=== PATIENT | female | born 1940 | race Caucasian/White ===

== ENCOUNTER 2020-11-22 12:54 | Outpatient (CLI) | payer MEDICARE, SELFPAY | END 2020-11-22 12:55 | disposition home or self-care (01) | PROVIDERS: PCP Family Medicine; Visit Provider Otolaryngology | DX: H91.93 Unspecified hearing loss, bilateral (principal); H93.19 Tinnitus, unspecified ear | CPT/HCPCS: 92557; 92567 ==

== ENCOUNTER 2022-04-01 13:05 | Outpatient (CLI) | payer MEDICARE, SELFPAY ==
[2022-04-01 19:37] LABS: Vitamin D 25 Hydroxy 42.9 ng/mL
[2022-04-01 19:51] LABS: Basophils Absolute Auto 0.1 K/mm3 (0.0-0.1); Basophils Percent Auto 0.7 % (0.2-1.2); Eosinophils Absolute Auto 0.1 K/mm3 (0-0.3); Hematocrit 44.3 % (37.0-47.0); Hemoglobin 14.1 g/dL (12.0-15.0); Immature Granulocyte Absolute 0.02 K/mm3 (0.00-0.031); Immature Granulocyte Percent A 0.3 % (0-0.5); Lymphocytes Absolute Auto 2.21 K/mm3 (0.9-3.2); Mean Corpuscular HGB Conc 31.8 g/dl (32-36); Mean Corpuscular Hemoglobin 32.4 pg (26-34); Mean Corpuscular Volume 101.8 fl (80-100); Monocytes Absolute Auto 0.6 K/mm3 (0.1-0.6); Monocytes Percent Auto 8.8 % (2.6-8.5); Neutrophils Absolute Auto 3.9 K/mm3 (1.3-6.7); Neutrophils Percent Auto 56.2 % (45.5-73.1); Platelet Count Result 244 k/mm3 (150-375); Red Blood Count 4.35 M/mm3 (4.2-5.4); Red Cell Distribution Width 13.1 % (11.5-14.5); Thyroid Stimulating Hormone Reflex 0.471 uIU/mL (0.465-4.68); White Blood Count 6.9 K/mm3 (4.5-10.0)
[2022-04-02 06:23] LABS: Alanine Aminotransferase 22 U/L (6-35); Albumin Level 4.1 g/dL (3.5-5.1); Alkaline Phosphatase 94 U/L (38-126); Anion Gap 12 mmol/L (8-16); Aspartate Amino Transferase 29 U/L (14-36); Bilirubin,Total 0.5 mg/dL (0.2-1.3); Blood Urea Nitrogen 16 mg/dL (7-17); Calcium 9.3 mg/dL (8.4-10.2); Carbon Dioxide 25 mmol/L (22-30); Chloride 108 mmol/L (98-107); Cholesterol 204 mg/dL (0-200); Estimated Glomerular Filt Rate 60; Glucose 92 mg/dL (65-110); HDL Direct 72 mg/dL; Potassium 4.8 mmol/L (3.4-5.0); Sodium 145 mmol/L (137-145); Triglycerides 108 mg/dL (<150)
[2022-04-02 06:34] LABS: LDL Cholesterol Direct 85 mg/dL
== END 2022-04-01 13:06 | disposition home or self-care (01) ==
LOC: ANHGOSHLAB 13:08
PROVIDERS: PCP Family Medicine; Visit Provider Family Medicine
DX: E03.9 Hypothyroidism, unspecified (principal); E78.5 Hyperlipidemia, unspecified; R49.9 Unspecified voice and resonance disorder; E53.8 Deficiency of other specified B group vitamins; E55.9 Vitamin D deficiency, unspecified; I10 Essential (primary) hypertension
CPT/HCPCS: 36415; 80053; 80061; 82306; 82607; 84443; 85025

== ENCOUNTER 2023-04-01 11:33 | Outpatient (CLI) | payer MEDICARE, SELFPAY ==
[2023-04-01 18:24] LABS: Alanine Aminotransferase 22 U/L (6-35); Albumin Level 4.2 g/dL (3.5-5.1); Alkaline Phosphatase 88 U/L (38-126); Anion Gap 7 mmol/L (8-16); Aspartate Amino Transferase 51 U/L (14-36); Bilirubin,Total 0.8 mg/dL (0.2-1.3); Blood Urea Nitrogen 16 mg/dL (7-17); Calcium 9.5 mg/dL (8.4-10.2); Carbon Dioxide 32 mmol/L (22-30); Chloride 101 mmol/L (98-107); Cholesterol 207 mg/dL (0-200); Estimated Glomerular Filt Rate > 60; Glucose 87 mg/dL (65-110); HDL Direct 74 mg/dL; Potassium 4.2 mmol/L (3.4-5.0); Sodium 140 mmol/L (137-145); Triglycerides 98 mg/dL (<150)
[2023-04-01 18:30] LABS: Basophils Percent Auto 0.5 % (0.2-1.2); Eosinophils Absolute Auto 0.2 K/mm3 (0-0.3); Eosinophils Percent Auto 2.2 % (0-4.4); Hematocrit 45.6 % (37.0-47.0); Hemoglobin 14.2 g/dL (12.0-15.0); Immature Granulocyte Absolute 0.02 K/mm3 (0.00-0.031); Immature Granulocyte Percent A 0.3 % (0-0.5); Immature Platelet Fraction Pct 10.9 % (0.9-11.2); Lymphocytes Absolute Auto 1.77 K/mm3 (0.9-3.2); Lymphocytes Percent Auto 23.4 % (18.3-44.2); Mean Corpuscular HGB Conc 31.1 g/dl (32-36); Mean Corpuscular Hemoglobin 32.2 pg (26-34); Mean Corpuscular Volume 103.4 fl (80-100); Mean Platelet Volume 13.2 fl (7.4-10.4); Monocytes Absolute Auto 0.7 K/mm3 (0.1-0.6); Monocytes Percent Auto 9.1 % (2.6-8.5); Neutrophils Absolute Auto 4.9 K/mm3 (1.3-6.7); Neutrophils Percent Auto 64.5 % (45.5-73.1); Platelet Count Result 248 k/mm3 (150-375); Red Blood Count 4.41 M/mm3 (4.2-5.4); Red Cell Distribution Width 12.8 % (11.5-14.5); White Blood Count 7.6 K/mm3 (4.5-10.0)
[2023-04-01 18:35] LABS: LDL Cholesterol Direct 89 mg/dL
[2023-04-01 19:20] LABS: Vitamin D 25 Hydroxy 43.4 ng/mL
[2023-04-01 19:33] LABS: Thyroid Stimulating Hormone Reflex 0.614 uIU/mL (0.465-4.68)
== END 2023-04-01 11:34 | disposition home or self-care (01) ==
PROVIDERS: PCP Family Medicine; Visit Provider Family Medicine
DX: E78.5 Hyperlipidemia, unspecified (principal); E03.9 Hypothyroidism, unspecified; E53.8 Deficiency of other specified B group vitamins; E55.9 Vitamin D deficiency, unspecified; Z78.0 Asymptomatic menopausal state
CPT/HCPCS: 36415; 80053; 80061; 82306; 82607; 84443; 85025; 85055

== ENCOUNTER 2023-07-07 14:52 | Outpatient (CLI) | payer MEDICARE, SELFPAY ==
[2023-07-07 18:35] LABS: Basophils Absolute Auto 0.1 K/mm3 (0.0-0.1); Basophils Percent Auto 0.8 % (0.2-1.2); Eosinophils Absolute Auto 0.3 K/mm3 (0-0.3); Eosinophils Percent Auto 4.1 % (0-4.4); Hematocrit 46.6 % (37.0-47.0); Hemoglobin 14.2 g/dL (12.0-15.0); Immature Granulocyte Absolute 0.01 K/mm3 (0.00-0.031); Immature Granulocyte Percent A 0.2 % (0-0.5); Lymphocytes Absolute Auto 1.92 K/mm3 (0.9-3.2); Lymphocytes Percent Auto 31.3 % (18.3-44.2); Mean Corpuscular HGB Conc 30.5 g/dl (32-36); Mean Corpuscular Hemoglobin 30.7 pg (26-34); Mean Corpuscular Volume 100.6 fl (80-100); Mean Platelet Volume 11.9 fl (7.4-10.4); Monocytes Absolute Auto 0.7 K/mm3 (0.1-0.6); Monocytes Percent Auto 11.6 % (2.6-8.5); Neutrophils Absolute Auto 3.2 K/mm3 (1.3-6.7); Platelet Count Result 364 k/mm3 (150-375); Red Blood Count 4.63 M/mm3 (4.2-5.4); Red Cell Distribution Width 12.3 % (11.5-14.5); White Blood Count 6.1 K/mm3 (4.5-10.0)
[2023-07-07 19:28] LABS: Alanine Aminotransferase 28 U/L (6-35); Albumin Level 4.1 g/dL (3.5-5.1); Alkaline Phosphatase 113 U/L (38-126); Anion Gap 4 mmol/L (8-16); Aspartate Amino Transferase 44 U/L (14-36); Bilirubin,Total 0.7 mg/dL (0.2-1.3); Blood Urea Nitrogen 16 mg/dL (7-17); Calcium 10.4 mg/dL (8.4-10.2); Carbon Dioxide 33 mmol/L (22-30); Chloride 105 mmol/L (98-107); Estimated Glomerular Filt Rate > 60; Glucose 96 mg/dL (65-110); Potassium 5.3 mmol/L (3.4-5.0); Sodium 142 mmol/L (137-145)
[2023-07-07 19:34] LABS: Thyroid Stimulating Hormone Reflex 0.641 uIU/mL (0.465-4.68)
== END 2023-07-07 14:53 | disposition home or self-care (01) ==
LOC: ANHGOSHLAB 14:54
PROVIDERS: PCP Family Medicine; Visit Provider Family Medicine
DX: E03.9 Hypothyroidism, unspecified (principal); R53.83 Other fatigue; I10 Essential (primary) hypertension
CPT/HCPCS: 36415; 80053; 84443; 85025

== ENCOUNTER 2023-08-01 09:40 | Outpatient (CLI) | payer MEDICARE, SELFPAY ==
--- NOTE | ~2023-08-01 | NM_ITS ---
EXAMINATION: NM yolanda stress w perfusion DATE: 08/01/2023 12:34 INDICATION: Other forms of dyspnea. TECHNIQUE: Rest images were obtained following intravenous administration of 10 mCi Tc99m tetrofosmin (Myoview). The patient was infused intravenously with Lexiscan (regadenoson). Then, 30 mCi Tc99m tet rofosmin (Myoview) was administered intravenously, and stress images were obtained. Data was reconstr ucted into short axis and horizontal and vertical long axis SPECT images. Gated SPECT images were als o obtained. COMPARISON: None. FINDINGS: There is no definite reversible or fixed perfusion abnormality to suggest ischemia or infar ction. There is no segmental wall motion abnormality. Left ventricular ejection fraction measures > 70%. IMPRESSION: 1. No definite ischemia or infarct. 2. Normal left ventricular ejection fraction measuring >70%. Reviewed, dictated and finalized at location A.
--- NOTE | 2023-08-01 09:47 | EST_ITS ---
Patient Info Name: Shaina Giraldo Age: 83 years : 1940 Gender: Female Ht: 63 in Wt: 178 lbs BSA: 1.92 m2 HR: 60 bpm BP: 147 / 88 mmHg Heart Rhythm: Sinus Rhythm Exam Date: 08/01/2023 11:40 AM Exam Location: Echo Lab Patient Status: Outpatient Admit Date: 08/01/2023 Staff Ordering Physician: Gurinder Pratt MD Attending Provider: Gurinder Pratt MD Exercise Technologist: Vale Fisher CT Exercise Physician: Florentino Pickett DO Exam Type: CA stress yolanda w NM Study Info Indications R06.09 - Other forms of dyspnea A regadenoson stress test was performed. Summary 1. 1. Negative lexiscan stress test for ischemic ST changes by ECG criteria. 2. 2. Baseline hypertension. 3. 3. Nuclear scan to follow and will be reported separately. Please correlate with it. 4. 4. Patient informed of the above results. Protocol: Lexiscan Rest HR: 62 bpm Peak HR: 106 bpm Rest Sys BP: 147 mmHg Peak Sys BP: 172 mmHg Max Pred HR: 137 bpm % Max Pred HR: 77 % Target HR: 116 bpm Max RPP: 18,232 bpm*mmHg Termination Reason: Completed protocol Cardiac Symptoms: Shortness of breath Rest Herzog BP: 88 mmHg Peak Herzog BP: 81 mmHg Total Dose: 0.4 mg Resting ECG Sinus rhythm. Stress ECG No ST changes. Arrhythmias None. Report Signatures
== END 2023-08-01 09:41 | disposition home or self-care (01) ==
LOC: ANHCARD 09:42
PROVIDERS: PCP Family Medicine; Visit Provider Family Medicine
DX: R07.9 Chest pain, unspecified (principal); R06.09 Other forms of dyspnea
CPT/HCPCS: 78452; 93017; A9502; J2785

== ENCOUNTER 2023-12-22 15:09 | Outpatient (CLI) | payer MEDICARE, SELFPAY ==
[2023-12-22 18:50] LABS: Alanine Aminotransferase 18 U/L (6-35); Albumin Level 4.1 g/dL (3.5-5.1); Alkaline Phosphatase 83 U/L (38-126); Anion Gap 6 mmol/L (4-12); Aspartate Amino Transferase 38 U/L (14-36); Bilirubin,Total 0.6 mg/dL (0.2-1.3); Blood Urea Nitrogen 19 mg/dL (7-17); Calcium 9.6 mg/dL (8.4-10.2); Carbon Dioxide 33 mmol/L (22-30); Chloride 102 mmol/L (98-107); Estimated Glomerular Filt Rate > 60; Glucose 83 mg/dL (65-110); Potassium 4.7 mmol/L (3.4-5.0); Sodium 141 mmol/L (137-145)
[2023-12-23 09:24] LABS: Thyroid Stimulating Hormone Reflex 0.101 uIU/mL (0.465-4.68)
== END 2023-12-22 15:10 | disposition home or self-care (01) ==
LOC: ANHGOSHLAB 15:10
PROVIDERS: PCP Family Medicine; Visit Provider Family Medicine
DX: E78.5 Hyperlipidemia, unspecified (principal); E03.9 Hypothyroidism, unspecified
CPT/HCPCS: 36415; 80053; 84439; 84443

== ENCOUNTER 2023-12-26 09:52 | Outpatient (CLI) | payer MEDICARE, SELFPAY ==
[2023-12-26 15:13] LABS: Thyroid Stimulating Hormone 0.293 uIU/mL (0.465-4.680)
[2023-12-26 19:48] LABS: Total Triiodothyronine (T3) 1.29 NG/ML (0.97-1.69)
== END 2023-12-26 09:53 | disposition home or self-care (01) ==
PROVIDERS: PCP Family Medicine; Visit Provider Family Medicine
DX: E03.9 Hypothyroidism, unspecified (principal)
CPT/HCPCS: 36415; 84439; 84443; 84480

== ENCOUNTER 2024-01-14 07:00 | Outpatient (NON) | payer MEDICARE, SELFPAY | END 2024-01-14 07:01 | disposition home or self-care (01) | LOC: ANHLAB 01-15 07:55 | PROVIDERS: PCP Family Medicine; Visit Provider Internal Medicine Gastroenterology | DX: D12.2 Benign neoplasm of ascending colon (principal) | CPT/HCPCS: 88305 ==

== ENCOUNTER 2024-01-14 08:07 | Day surgery (SDC) | payer MEDICARE, SELFPAY ==
[2024-01-05 09:45] VITALS: BMI 30.2
[2024-01-05 10:53] VITALS: BMI 30.4
--- NOTE | 2024-01-13 10:10 | P.PNAN_ITS ---
Anes - Initial Pre Proc Eval Procedure: Operation Date: 01/14/24 12:00 Proposed Procedures p Diagnostic Colonoscopy - Otilio Casey MD Date/Time: 01/13/24 10:10 Surgeon: Otilio Casey MD Pre Op Diagnosis: Gastrointestinal hemorrhage,unspec.Noninfective Patient Data Age: 83 Gender: F Height: 1.6 m Weight: 78 kg Allergies Allergy/AdvReac Type Severity Reaction Status Date / Time moxifloxacin [From Avelox] Allergy Unknown Hallucinati Verified 01/14/24 09:07 ng Home Medications Medication Instructions Recorded Confirmed Type levothyroxine 50 mcg tablet 50 mcg PO DAILY #60 tabs 12/29/23 01/14/24 Rx Patient hx anesthesia problems: none Family hx anesthesia problems: none Results Review: All pre-operative results and documents have been reviewed as part of the pre- operative evaluation. 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 Status post right knee replacement 05/2003 Family History Family History Mother Family history of malignant neoplasm of esophagus Other Acute myocardial infarction Social History Social History Smoking status: Never smoker Alcohol intake: current Substance use: never Substance use type: does not use Do You Feel Safe in your Home?: Yes Lack of Transportation: No Lack of Food: Never True Current Housing: I Have Housing Concerned About Future Housing: No Difficulty Paying Gas/Electric Bills: No Difficulty Paying for Meds: No Currently Unemployed: No Education: High School Diploma/GED Difficulty w/ Childcare or Family Care: No Living arrangements: alone Occupation/Education: retired Gender identity (if verbalized by the patient): Female Spiritual care concerns: No Agree to blood products: Yes Anes - Eval Final PreProcedure Day of Procedure 01/13/24 10:10 Patient weight: obese Heart: regular rate and rhythm Lungs: clear to auscultation Airway: Mallampati scale class II Neurological: alert and oriented Last oral intake: >/= 8 hours ASA classification: II Emergent: no Anesthetic plan: proceed Anesthesia type and monitoring: general GIVS and standard monitoring Results Review: All pre-operative results and documents have been reviewed as part of the pre- operative evaluation. Informed Consent: The patient's anesthetic plan and its attendant risks and benefits were discussed with the patient/family/POA. Questions were solicited and answers provided to the satisfaction of the patient/family/POA.
[2024-01-14 09:15] VITALS: BP 119/61; PULSE 65; RESP 18; TEMP 36.5; O2SAT 99
[2024-01-14] MEDS: LACTATED RINGERS 1,000 ML 150 ML IV CONT (09:30)
--- NOTE | 2024-01-14 09:55 | PM.HPGS ---
History of Present Illness History of Present Illness Consent: Risks, benefits, and alternatives have been discussed and questions answered. Patient agrees to proceed with procedure. Chief complaint: Gastrointestinal hemorrhage,unspec.Noninfective Narrative: Shaina Giraldo is a 83 year old female presents for colonoscopy. Patient gives a history of being admitted to [facility] in April of 2023. At that time she had bright red blood per rectum. Hospital. CT scan suggested partial colitis. Was presumed she had ischemic colon is but infectious colitis could not be excluded. With antibiotics. Patient reports abdominal pain and bleeding resolved after 4 days. Patient has been unable to have colonoscopy which was recommended at that time until this time. She now presents to our office for colonoscopy. She states her bowel habits are normal. She has had no additional bleeding. She denies abdominal pain. 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 Status post right knee replacement 05/2003 Family History Family History Mother Family history of malignant neoplasm of esophagus Other Acute myocardial infarction Social History Social History Smoking status: Never smoker Alcohol intake: current Substance use: never Substance use type: does not use Do You Feel Safe in your Home?: Yes Lack of Transportation: No Lack of Food: Never True Current Housing: I Have Housing Concerned About Future Housing: No Difficulty Paying Gas/Electric Bills: No Difficulty Paying for Meds: No Currently Unemployed: No Education: High School Diploma/GED Difficulty w/ Childcare or Family Care: No Living arrangements: alone Occupation/Education: retired Gender identity (if verbalized by the patient): Female Spiritual care concerns: No Agree to blood products: Yes Meds Home Medications and Allergies Home Medications Medication Instructions Recorded Confirmed Type levothyroxine 50 mcg tablet 50 mcg PO DAILY #60 tabs 08/12/24 08/28/24 Rx Allergies Allergy/AdvReac Type Severity Reaction Status Date / Time moxifloxacin [From Avelox] Allergy Unknown Hallucinati Verified 01/14/24 09:07 ng Vital Signs Vital Signs - 24 hr 01/14/24 09:15 Temperature 97.7 F Pulse Rate 65 Respiratory Rate 18 Blood Pressure 119/61 Pulse Oximetry 99 Oxygen Delivery Room Air Exam Narrative: Physical exam reveals patient to be alert. Vital signs stable. HEENT exam is unremarkable. Patient is anicteric. Lungs are clear to auscultation and to percussion heart is without murmur or extra sounds. Abdomen your present soft nontender with no organomegaly. Digital external rectal exam is normal. Assessment and Plan Assessment and plan (1) Lower GI bleed: Code(s): K92.2 - Gastrointestinal hemorrhage, unspecified Status: Acute Assessment and Plan: Patient presents today for colonoscopy. She has a history of lower GI bleeding in April of 2023 that was limited to 4 days. Further recommendations may be given after endoscopy.
[2024-01-14 11:27] VITALS: BP 91/51; PULSE 67; RESP 14; O2SAT 95
--- NOTE | 2024-01-14 11:35 | WPDANESPN ---
Anes - Prog Note Post-Op Date/Time: 01/14/24 11:35 Cardiovascular status: normal Respiratory status: normal Airway patency: baseline Mental status: baseline Post-Op hydration status: normal Vital Signs: Last Vital Signs Temp 36.5 C 01/14/24 09:15 Pulse 67 01/14/24 11:27 Resp 14 01/14/24 11:27 BP 91/51 L 01/14/24 11:27 Pulse Ox 95 01/14/24 11:27 O2 Del Method Room Air 01/14/24 11:27 Pain Score (VAS): 0 I/O: Intake & Output 01/13/24 01/14/24 01/14/24 23:59 07:59 15:59 Intake Total 400 Balance 400 Post-procedural complaints: none Patient Feedback: Patient satisfied with anesthetic care. Other Findings: Patient vital signs back to baseline. Patient denies nausea and vomiting. Patient's pain under control. Patient OK for discharge.
[2024-01-14 11:37] VITALS: BP 96/67; PULSE 60; RESP 16; O2SAT 100
[2024-01-14 11:47] VITALS: BP 128/70; PULSE 61; RESP 16; O2SAT 100
== END 2024-01-14 12:07 | disposition home or self-care (01) ==
PROVIDERS: PCP Family Medicine; Visit Provider Internal Medicine Gastroenterology
PROC: 0DJD8ZZ Inspection of Lower Intestinal Tract, Via Natural or Artificial Opening Endoscopic (ICD-10-PCS; CPT 45378; principal; 2024-01-14 10:30)
DX: K92.2 Gastrointestinal hemorrhage, unspecified (principal); D12.2 Benign neoplasm of ascending colon; D12.4 Benign neoplasm of descending colon; K64.8 Other hemorrhoids
CPT/HCPCS: 45385

== ENCOUNTER 2024-02-11 09:30 | Outpatient (CLI) | payer MEDICARE, SELFPAY ==
[2024-02-11 16:45] LABS: Free T4 Free Thyroxine Reflex 0.98 ng/dL (0.78-2.19)
[2024-02-11 18:13] LABS: Total Triiodothyronine (T3) 1.16 NG/ML (0.97-1.69)
== END 2024-02-11 09:31 | disposition home or self-care (01) ==
LOC: ANHGOSHLAB 09:32
PROVIDERS: PCP Family Medicine; Visit Provider Family Medicine
DX: R49.0 Dysphonia (principal)
CPT/HCPCS: 36415; 84439; 84443; 84480

== ENCOUNTER 2024-04-06 09:41 | Outpatient (CLI) | payer MEDICARE, SELFPAY ==
[2024-04-06 13:44] LABS: Alanine Aminotransferase 19 U/L (6-35); Albumin Level 3.9 g/dL (3.5-5.1); Alkaline Phosphatase 87 U/L (38-126); Anion Gap 5 mmol/L (4-12); Aspartate Amino Transferase 45 U/L (14-36); Bilirubin,Total 0.8 mg/dL (0.2-1.3); Blood Urea Nitrogen 18 mg/dL (7-17); Calcium 9.2 mg/dL (8.4-10.2); Carbon Dioxide 32 mmol/L (22-30); Chloride 102 mmol/L (98-107); Cholesterol 213 mg/dL (0-200); Estimated Glomerular Filt Rate 47; Glucose 77 mg/dL (65-110); HDL Direct 82 mg/dL; Potassium 4.9 mmol/L (3.4-5.0); Sodium 139 mmol/L (137-145); Triglycerides 64 mg/dL (<150)
[2024-04-06 13:46] LABS: Basophils Absolute Auto 0.1 K/mm3 (0.0-0.1); Basophils Percent Auto 0.9 % (0.2-1.2); Eosinophils Absolute Auto 0.2 K/mm3 (0-0.3); Eosinophils Percent Auto 2.8 % (0-4.4); Hematocrit 43.9 % (37.0-47.0); Immature Granulocyte Absolute 0.01 K/mm3 (0.00-0.031); Immature Granulocyte Percent A 0.2 % (0-0.5); Lymphocytes Absolute Auto 1.73 K/mm3 (0.9-3.2); Lymphocytes Percent Auto 31.7 % (18.3-44.2); Mean Corpuscular HGB Conc 31.9 g/dl (32-36); Mean Corpuscular Hemoglobin 32.8 pg (26-34); Mean Corpuscular Volume 102.8 fl (80-100); Mean Platelet Volume 12.7 fl (7.4-10.4); Monocytes Absolute Auto 0.6 K/mm3 (0.1-0.6); Monocytes Percent Auto 10.5 % (2.6-8.5); Neutrophils Absolute Auto 2.9 K/mm3 (1.3-6.7); Neutrophils Percent Auto 53.9 % (45.5-73.1); Platelet Count Result 228 k/mm3 (150-375); Red Blood Count 4.27 M/mm3 (4.2-5.4); Red Cell Distribution Width 13.2 % (11.5-14.5); White Blood Count 5.5 K/mm3 (4.5-10.0)
[2024-04-06 14:08] LABS: LDL Cholesterol Direct 92 mg/dL
[2024-04-06 14:18] LABS: Vitamin D 25 Hydroxy 41.5 ng/mL
[2024-04-06 15:43] LABS: Hemoglobin A1C 5.4 % (<5.7)
[2024-04-07 04:50] LABS: Free T4 Free Thyroxine Reflex 0.87 ng/dL (0.78-2.19)
[2024-04-07 05:59] LABS: Total Triiodothyronine (T3) 1.01 NG/ML (0.97-1.69)
== END 2024-04-06 09:42 | disposition home or self-care (01) ==
LOC: ANHGOSHLAB 09:42
PROVIDERS: PCP Family Medicine; Visit Provider Family Medicine
DX: E03.9 Hypothyroidism, unspecified (principal); I10 Essential (primary) hypertension; R73.9 Hyperglycemia, unspecified; E53.8 Deficiency of other specified B group vitamins; E78.5 Hyperlipidemia, unspecified; E55.9 Vitamin D deficiency, unspecified
CPT/HCPCS: 36415; 80053; 80061; 82306; 82607; 83036; 84439; 84443; 84480; 85025

== ENCOUNTER 2024-04-20 10:52 | Outpatient (CLI) | payer MEDICARE, SELFPAY ==
[2024-04-20 13:21] LABS: Alanine Aminotransferase 26 U/L (6-35); Albumin Level 4.2 g/dL (3.5-5.1); Alkaline Phosphatase 78 U/L (38-126); Anion Gap 0 mmol/L (4-12); Aspartate Amino Transferase 62 U/L (14-36); Blood Urea Nitrogen 17 mg/dL (7-17); Calcium 9.4 mg/dL (8.4-10.2); Carbon Dioxide 35 mmol/L (22-30); Chloride 105 mmol/L (98-107); Estimated Glomerular Filt Rate 53; Glucose 85 mg/dL (65-110); Potassium 4.7 mmol/L (3.4-5.0); Sodium 140 mmol/L (137-145)
== END 2024-04-20 10:53 | disposition home or self-care (01) ==
LOC: ANHGOSHLAB 10:54
PROVIDERS: PCP Family Medicine; Visit Provider Family Medicine
DX: I10 Essential (primary) hypertension (principal)
CPT/HCPCS: 36415; 80053

== ENCOUNTER 2024-05-05 07:29 | Outpatient (CLI) | payer MEDICARE, SELFPAY ==
--- NOTE | ~2024-05-05 | MR_ITS ---
MRI of the brain Clinical History: Dizziness and giddiness Technique: Axial and sagittal T1-weighted images were acquired. These were followed by axial T2-weigh ynes, diffusion weighted, gradient, and FLAIR images. Findings: There is no acute infarct, intracranial hemorrhage, or mass lesion. There is moderate chron ic microvascular ischemic change in the periventricular white matter bilaterally. Ventricles and subarachnoid spaces are unremarkable. Orbits are unremarkable. Paranasal sinuses and m astoid air cells are clear. Major intracranial flow voids are intact. Sagittal midline structures are intact. IMPRESSION: No acute infarct, intracranial hemorrhage, or mass lesion. Moderate chronic microvascular ischemic change. Reviewed, dictated and finalized at location M. UER SPRAYER
== END 2024-05-05 07:30 | disposition home or self-care (01) ==
PROVIDERS: PCP Family Medicine; Visit Provider Family Medicine
DX: I67.2 Cerebral atherosclerosis (principal)
CPT/HCPCS: 70551

== ENCOUNTER 2024-05-10 10:31 | Outpatient (CLI) | payer MEDICARE, SELFPAY | END 2024-05-10 10:32 | disposition home or self-care (01) | LOC: ANHGOSHLAB 10:33 | PROVIDERS: PCP Family Medicine; Visit Provider Family Medicine | DX: E03.9 Hypothyroidism, unspecified (principal) | CPT/HCPCS: 36415; 84443 ==

== ENCOUNTER 2024-10-04 13:49 | Outpatient (CLI) | payer MEDICARE, SELFPAY ==
--- OUTSIDE RECORDS SUMMARY | 2024-10-04 13:54 | XMS_ITS | Clinical Summary ---
Author Organization [facility] Address [facility] [address] [place] [address] Care Team Providers Care Senior Inspector Name Role Phone Babatunde Pratt MD Primary Care Provider Allergies Active Allergy Reactions Criticality Noted Date Comments Moxifloxacin Hallucinations Low 09/12/2017 Medications levothyroxine (SYNTHROID) 75 MCG tablet Take 1 tablet (75 mcg total) by mouth every morning. Active multi vitamin/mineral s (THERA-M ENHANCED) tablet Take 1 tablet by mouth daily. Active Vitamin D3 (CHOLECALCIFERO L) 50 mcg tablet Take 0.5 tablets (1,000 Units total) by mouth daily. Active oxybutynin XL (DITROPAN-XL) 10 MG 24 hr tablet Take 1 tablet (10 mg total) by mouth daily. Pt takes 5mg bid Active Active Problems Problem Noted Date Diagnosed Date GIB (gastrointestinal bleeding) 04/30/2023 Primary osteoarthritis of left knee 09/18/2018 Overview (05/02/2023): Added automatically from request for surgery Joint pain, knee 09/11/2017 Social History Tobacco Use Types Packs/Day Years Used Date Smoking Tobacco: Never Smokeless Tobacco: Never Tobacco Cessation:Counseling Given: Not Answered Alcohol Use Standard Drinks/Week Comments Yes 0 (1 standard drink = 0.6 oz pur e alcohol) 4 times per year [facility] Utilities Answer Date Recorded In the past 12 months has th e electric, gas, oil, or water company threatened to shut off services in your home? No 04/30/2023 Humiliation, Afraid, Rape, and Kick questionnair e Answer Date Recorded Within the last year, have y ou been afraid of your partner or ex-partner? No 04/30/2023 Within the last year, have y ou been humiliated or emotionally abused in other ways by your partner or ex-partner? No Within the last year, have y ou been kicked, hit, slapped, or otherwise physically hurt by your partner or ex-partner? No 04/30/2023 Within the last year, have y ou been raped or forced to have any kind of sexual activity by your partner or ex-partner? No 04/30/2023 Overall Financial Resource Strain (CARDIA) Answe r Date Recorded How hard is it for you to pa y for the very basics like food, housing, medical care, and heating? Not hard at all 04/30/2023 [facility] - Occupational Stress Questionnaire Answer Date Recorded Do you feel stress - tense, restless, nervous, or anxious, or unable to sleep at night because your mind is troubled all the time - these days? Not at all 04/30/2023 Hunger Vital Sign Answer Date Recorded Within the past 12 months, y ou worried that your food would run out before you got the money to buy more. Never true 04/30/20 23 Within the past 12 months, t he food you bought just didn't last and you didn't have money to get more. Never true 04/30/2023 PRAPARE - Transportation Answer Date Re corded In the past 12 months, has l ack of transportation kept you from medical appointments or from getting medications? No 04/18 In the past 12 months, has l ack of transportation kept you from meetings, work, or from getting things needed for daily living? No 04/30/2023 Housing Stability Vital Sign Answer Sourav e Recorded In the last 12 months, was t here a time when you were not able to pay the mortgage or rent on time? No 04/30/2023 In the last 12 months, how many places have you lived? 1 04/30/2023 In the last 12 months, was t here a time when you did not have a steady place to sleep or slept in a jail (including now)? No 04/30/2023 Comments No Sex and Gender Information Value Date Recorded Sex Assigned at Not on file Legal Sex Female 9:21 PM BANKING CONSULTANT Gender Identity Not on file Sexual Orientation Not on file Last Filed Vital Signs Vital Sign Reading Time Taken Comments Blood Pressure 122/64 05/02/2023 7:38 AM BANKING CONSULTANT Pulse 65 05/02/2023 7:38 AM BANKING CONSULTANT Temperature 36.7 C (98.1 F) 05/02/2023 7:38 AM BANKING CONSULTANT Respiratory Rate 18 05/02/2023 7:38 AM BANKING CONSULTANT Oxygen Saturation 93% 05/02/2023 7:38 AM BANKING CONSULTANT Inhaled Oxygen Concentration - - Weight 82.1 kg (181 lb) 05/29/2023 3:00 PM BANKING CONSULTANT Height 160 cm (5' 3 ) 05/29/2023 3:00 PM BANKING CONSULTANT Body Mass Index 32.06 05/29/2023 3:00 PM BANKING CONSULTANT Plan of Treatment Health Maintenance Due Date Last Done Comments DTaP, Tdap and Td Vaccines ( 1 - Tdap) 1959 Pneumococcal Vaccine: 50+ Years (1 of 1 - PCV) 1990 Zoster Vaccines (1 of 2) 1990 Annual Medicare Wellness Visit 2005 Dexa Scan (General) 2005 RSV Immunization or 60+ Years (1 - 1-dose 75+ series) 2015 COVID-19 Vaccine (4 - 2023-2 5 season) 2024 11/05/2021, 09/28/2020, 09/03/2020 Meningococcal B Vaccine Aged Out No l onger eligible based on patient's age to complete this topic Meningococcal Vaccine Aged Out No david slade eligible based on patient's age to complete this topic RSV Immunizations Under 20 Months Aged Out No longer eligible b ased on patient's age to complete this topic Goals Goal Patient Goal Type Associated Problems Recent Progress Patient-Stated? Author Patient will return to prior living situation and remain independent in ADLs upon discharge from hospital Lifestyle No Pam Lopez, SCOTTIE Medical Devices Implanted Type Area Internal Medicine Specialist Device Identifier Shelf Expiration Date Model / Serial / Lot Knee Components Knee Components Bilatera l: Knee Insurance [employer] MEDICARE Advance Directives * Full Code (Latest Code Status on File) Date Activated Date Inactivated Comments 04/30/2023 12:57 AM 05/02/2023 12:29 PM Care Teams Senior Inspector Relationship Specialty Start Date End Date Babatunde Pratt MD [id number] [facility] [address] [place] [address] PCP - General FAMILY PRACTICE 04/29/23
[2024-10-04 21:04] LABS: Alanine Aminotransferase 24 U/L (6-35); Albumin Level 4.2 g/dL (3.5-5.1); Alkaline Phosphatase 84 U/L (38-126); Anion Gap 6 mmol/L (4-12); Aspartate Amino Transferase 41 U/L (14-36); Bilirubin,Total 0.6 mg/dL (0.2-1.3); Blood Urea Nitrogen 22 mg/dL (7-17); Calcium 9.6 mg/dL (8.4-10.2); Carbon Dioxide 30 mmol/L (22-30); Chloride 103 mmol/L (98-107); Estimated Glomerular Filt Rate 52; Glucose 86 mg/dL (65-110); Potassium 4.7 mmol/L (3.4-5.0); Sodium 139 mmol/L (137-145)
[2024-10-04 22:07] LABS: Thyroid Stimulating Hormone Reflex 0.291 uIU/mL (0.465-4.68)
[2024-10-05 00:16] LABS: Total Triiodothyronine (T3) 1.22 NG/ML (0.97-1.69)
== END 2024-10-04 13:50 | disposition home or self-care (01) ==
LOC: ANHGOSHLAB 13:49
PROVIDERS: PCP Family Medicine; Visit Provider Family Medicine
DX: N28.9 Disorder of kidney and ureter, unspecified (principal); E03.9 Hypothyroidism, unspecified
CPT/HCPCS: 36415; 80053; 84439; 84443; 84480

== ENCOUNTER 2024-11-11 09:17 | Outpatient (CLI) | payer MEDICARE, SELFPAY ==
[2024-11-11 13:22] LABS: Thyroid Stimulating Hormone Reflex 0.631 uIU/mL (0.465-4.68)
== END 2024-11-11 09:18 | disposition home or self-care (01) ==
LOC: ANHGOSHLAB 09:18
PROVIDERS: PCP Family Medicine; Visit Provider Family Medicine
DX: E03.9 Hypothyroidism, unspecified (principal)
CPT/HCPCS: 36415; 84443

== ENCOUNTER 2025-05-10 11:00 | Emergency (ER) | payer MEDICARE, SELFPAY ==
[2025-05-10 11:14] VITALS: BP 118/64; PULSE 76; RESP 16; TEMP 36.9; O2SAT 98
[2025-05-10 11:42] LABS: EDCOVIDSCREEN Negative (Negative); EDINFLUASCREEN Negative (Negative); EDINFLUBSCREEN Negative (Negative)
--- NOTE | 2025-05-10 11:44 | ED.URI ---
HPI - URI/Sore Throat General Chief Complaint: Upper Respiratory Infection Stated Complaint: COLD SYMPTOMS Time Seen by Provider: 05/10/25 11:37 Source: patient and RN notes reviewed Mode of arrival: ambulatory Limitations: no limitations History of Present Illness HPI Narrative: 85-year-old female patient presents today complaining of sore throat, cough, nasal congestion since yesterday. Denies fever or any GI symptoms. No OTC treatment prior to arrival. No history of asthma or COPD. Patient states her daughter urged her to come in for evaluation. 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 Lower GI bleed (~04/2023) Tubular adenoma of colon (~12/2023) Urge incontinence Vitamin B12 deficiency Osteopenia Hyperlipidemia Hypothyroidism, unspecified Surgical History Surgical History Hx of eye surgery to 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 History of tonsillectomy History of hysterectomy 1985 History of thumb surgery 2009 - ORIF for fracture 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 Status post right knee replacement 05/2003 Family History Family History Mother Family history of malignant neoplasm of esophagus Other Acute myocardial infarction Social History Social History Smoking status: Never smoker Alcohol intake: current Substance use: never Substance use type: does not use Lack of Transportation: No Lack of Food: Never True Current Housing: I Have Housing Concerned About Future Housing: No Difficulty Paying Gas/Electric Bills: No Difficulty Paying for Meds: No Currently Unemployed: No Education: High School Diploma/GED Difficulty w/ Childcare or Family Care: No Living arrangements: alone Occupation/Education: retired Gender identity (if verbalized by the patient): Female Spiritual care concerns: No Agree to blood products: Yes Comments At time of signature, I have reviewed and agree with nursing past medical, surgical, social and family history unless otherwise noted. Please see nursing chart for further information. There is no relevant family history pertinent to the presenting complaint Exam Narrative: GENERAL: Well-appearing, well-nourished, and in no acute distress. HEAD: Normocephalic, atraumatic. EYES: EOMI. No redness or drainage. Conjunctivae normal. ENT: Mucous membranes pink and moist. Nares clear. No rhinorrhea. TMs normal bilaterally. Throat normal. Uvula midline. NECK: Normal AROM. Supple. No lymphadenopathy. CHEST: No respiratory distress. Clear to auscultation. HEART: Regular rate and rhythm. No murmur appreciated. EXTREMITIES: Normal range of motion. No edema. SKIN: Warm, dry, no rash. Capillary refill normal. Normal skin turgor. NEURO: No focal deficits. Alert and oriented x3. Gait steady. PSYCH: Normal affect. No signs of depression or anxiety. Course Course Level of Care: Express Care Visit Vital Signs Vital signs: Vital Signs Temperature 98.4 F 05/10/25 11:14 Pulse Rate 76 05/10/25 11:14 Respiratory Rate 16 05/10/25 11:14 Blood Pressure 118/64 05/10/25 11:14 Pulse Oximetry 98 05/10/25 11:14 Temperature 98.4 F 05/10/25 11:14 Pulse Rate 76 05/10/25 11:14 Respiratory Rate 16 05/10/25 11:14 Blood Pressure 118/64 05/10/25 11:14 Pulse Oximetry 98 05/10/25 11:14 Reviewed MDM MDM Narrative Medical decision making narrative: 85-year-old female patient presents today complaining of sore throat, cough, nasal congestion since yesterday. Denies fever or any GI symptoms. No OTC treatment prior to arrival. No history of asthma or COPD. Patient states her daughter urged her to come in for evaluation. Physical exam normal. Influenza negative, COVID negative, rapid strep negative. Strep culture pending Symptoms likely viral in etiology. Discussed [id number] medication use and duration of illness. No prescription medications indicated at this time. Anticipatory guidance given. Patient agrees with plan. Vital signs stable. Differential Diagnosis Differential Diagnosis: URI, pharyngitis, COVID, influenza, strep throat Lab Data [facility] Lab Attestation statement: I personally reviewed the patient's lab results. Lab results narrative: Rapid strep negative Labs: Lab Results 05/10/25 Range/Units 11:39 POC Influenza A Ag Negative (Negative) POC Influenza B Ag Negative (Negative) POC SARS CoV-2 Ag Negative (Negative) Critical Care Time Critical Care Time Critical Care Time: No Discharge Plan Discharge Clinical Impression: Upper respiratory infection Qualifiers: URI type: unspecified URI Qualified Code(s): J06.9 - Acute upper respiratory infection, unspecified Patient Disposition: Home Condition: Stable Instructions: Upper Respiratory Infection (DC) Additional Instructions: Your COVID-19, influenza, and rapid strep swab for negative today at [facility]. You will be notified in a few days if the culture comes back positive for strep, and appropriate antibiotics will be called in for you at that time. Your symptoms are likely due to a viral illness, which is not treated with antibiotics. Viral symptoms can be present for up to 7-10 days. Take Tylenol for fever or pain. Recommend Mucinex for any chest congestion. Rest and stay hydrated. Follow up with your PCP in 7 days if symptoms are not improving. Go to the ER immediately if you have any difficulty breathing or swallowing. Patient Language: Luxembourgish Prescriptions: No Action mirabegron [Myrbetriq] 25 mg tablet extended release 24 hr 25 mg PO DAILY Qty: 90 0RF mirabegron [Myrbetriq] 25 mg tablet extended release 24 hr 25 mg PO DAILY PRN levothyroxine 75 mcg tablet 75 mcg PO DAILY Qty: 90 1RF Follow-up/Referrals: Gurinder Pratt MD [Primary Care Provider, [facility]] Time of Disposition: 12:00
[2025-05-10 12:01] LABS: EDSTREPNEGPOS1 Negative (Negative)
== END 2025-05-10 12:05 | disposition home or self-care (01) ==
PROVIDERS: Emergency Provider Nurse Practitioner; PCP Family Medicine
DX: J06.9 Acute upper respiratory infection, unspecified (principal); Z20.822 Contact with and (suspected) exposure to COVID-19; E03.9 Hypothyroidism, unspecified; E78.5 Hyperlipidemia, unspecified; M85.80 Other specified disorders of bone density and structure, unspecified site; Z96.653 Presence of artificial knee joint, bilateral
CPT/HCPCS: 87081; 87426; 87804; 87880; 99213; G0463